=== PATIENT | female | born 1985 | race Hispanic/Latino ===

== ENCOUNTER 2023-07-18 10:05 | Emergency (ER) | payer BC, OTHER | END 2023-07-18 11:09 | disposition home or self-care (01) | LOC: MADERS 10:05 | DX: S20.212A Contusion of left front wall of thorax, initial encounter (principal); I10 Essential (primary) hypertension; E11.9 Type 2 diabetes mellitus without complications; E78.5 Hyperlipidemia, unspecified; V43.12XA Car passenger injured in collision with other type car in nontraffic accident, initial encounter; W22.12XA Striking against or struck by front passenger side automobile airbag, initial encounter; Z79.4 Long term (current) use of insulin; Z79.899 Other long term (current) drug therapy ==